=== PATIENT | male | born 1985 | race Caucasian/White ===

== ENCOUNTER 2016-10-21 09:04 | Emergency (ER) | payer OTHER ==
[~2016-10-21] VITALS: Ht 172.7 cm; Wt 76.2 kg
--- NOTE | 2016-10-21 09:15 | NUR ---
PT L SIDED CHEST PAIN AND L SIDED NUMBNESS SINCE 0400, PT REPORTED HE SMOKED/DRANK AND TOOK COCAINED LAST NIGHT. PT AAOX3. NOTED PALE IN SKIN COLOR, GENERALIZED WEAKNESS. VSShahriar. AT FOR EVAL. SAFETY AND COMFORT MEASURES PROVIDED. WILL MONITOR.
[2016-10-21] MEDS ORDERED: IV SET PRIMARY 1 EA INFUS.SET MC ONE (09:27)
[2016-10-21] MEDS ORDERED: IV NS 0.9% 1,000 ML ONE (09:27)
[2016-10-21] MEDS ORDERED: IV NS 0.9% 1,000 ML BAG IV ONE (09:30)
--- NOTE | 2016-10-21 09:30 | NUR ---
IV ACCESS STARTED. BLOOD DRAWN FOR LABS, SENT. PT MEDICATED ORDERED.
[2016-10-21 09:36] LABS: BASOPHILS % (AUTO) 0.5 % (0.0-2.0); EOSINOPHILS % (AUTO) 0.5 % (0.0-6.0); HEMATOCRIT 43 % (39-51); HEMOGLOBIN 14.8 g/dL (13.5-17.5); LYMPHOCYTES # (AUTO) 2.8 /CMM (0.8-4.8); LYMPHOCYTES % (AUTO) 29.7 % (20.0-44.0); MEAN CORPUSCULAR HEMOGLOBIN 29 PG (26.0-33.0); MEAN CORPUSCULAR HGB CONC 35 g/dl (31.0-36.0); MEAN CORPUSCULAR VOLUME 84 fL (80-96); MONOCYTES # (AUTO) 0.8 /CMM (0.1-1.30); MONOCYTES % (AUTO) 8.1 % (2.0-12.0); NEUTROPHILS # (AUTO) 5.7 /CMM (1.8-8.9); NEUTROPHILS % (AUTO) 61.2 % (43.0-81.0); PLATELET COUNT (AUTO) 239 /CMM (150-450); RDW COEFFICIENT OF VARIATION 12.6 (11.5-15.0); RED BLOOD CELL COUNT(AUTO) 5.05 MIL/uL (4.5-6.0); WHITE BLOOD COUNT (AUTO) 9.3 K/uL (4.3-11.0)
--- NOTE | 2016-10-21 09:36 | NUR ---
PT TAKEN TO XRAY.
[2016-10-21 09:49] LABS: CALCIUM, SERUM 8.6 mg/dL (8.5-10.1); CARBON DIOXIDE 26 mmol/L (21-32); CHLORIDE 102 mmol/L (98-107); CREATININE 0.9 mg/dL (0.6-1.3); GFR 98 mL/min (>60); GLUCOSE 96 mg/dL (74-106); POTASSIUM 3.9 mmol/L (3.5-5.1); SODIUM SERUM 139 mmol/L (136-145); UREA NITROGEN, BLOOD 15 mg/dL (7-18)
[2016-10-21 09:58] LABS: TROPONIN I < 0.017 ng/mL (0.00-0.056)
--- NOTE | 2016-10-21 10:05 | NUR ---
HR=96; RR=20; O2 SAT=97%
--- NOTE | 2016-10-21 10:30 | NUR ---
IV removed. Catheter intact and site benign. Pressure and 4x4 applied to site. No bleeding noted.
--- NOTE | 2016-10-21 10:37 | NUR ---
Patient discharged to home in stable condition. Written and verbal after care instructions given. Patient verbalizes understanding of instruction. Pt ambulatory with a steady gait.
[2016-10-21] MEDS ORDERED: ACETAMINOPHEN ES 500 MG TABLET ONE (10:43)
[2016-10-21] MEDS ORDERED: CARI350T27 (10:44)
[2016-10-21] MEDS ORDERED: CYCL-343 (10:44)
[2016-10-21] MEDS ORDERED: HYDR-3652 (10:44)
[2016-10-21 10:48] VITALS: BP 124/80
[2016-10-21] MEDS ORDERED: ACETAMINOPHEN ES 500 MG TABLET PO ONE (11:00)
== END 2016-10-21 10:49 | disposition home or self-care (01) ==
LOC: ER 09:10
DX: R07.9 Chest pain, unspecified (principal); F14.10 Cocaine abuse, uncomplicated; E86.0 Dehydration; F17.200 Nicotine dependence, unspecified, uncomplicated
CPT/HCPCS: 36415; 71010-TC; 80048-TC; 84484-TC; 85025-TC; A4606; J7030; Z7610